=== PATIENT | female | born 1980 | race Caucasian/White ===

== ENCOUNTER → 2021-05-05 | Outpatient (CLI) | payer BC ==
[2005-08-11 08:00] VITALS: TEMP 97.1
[~2021-05-05] MED LIST: LORTAB 5/500 501 TAB PO; MOTRIN 600600 MG/TAB PO; NOVA RING; PERCOCET 325 MG1 TA2 PO; PHENERGAN 25 TA25 MG PO; PRENATAL1 TA7 PO; PRILOSEC10 MG PO; STOOL SOFTENER100 M2 PO; SYNTHROID PO; VALTREX 50500 MG/TAB PO; ZANTAC 150MG T150 MG PO
== END ==
LOC: MC.RAD 16:46
DX: Z12.31 Encounter for screening mammogram for malignant neoplasm of breast (principal); N64.89 Other specified disorders of breast

== ENCOUNTER → 2021-05-24 | Outpatient (CLI) | payer BC ==
[2005-08-11 08:00] VITALS: TEMP 97.1
== END ==
LOC: MC.RAD 13:00
DX: N64.89 Other specified disorders of breast (principal)

== ENCOUNTER → 2022-01-30 | Outpatient (CLI) | payer BC ==
[2005-08-11 08:00] VITALS: TEMP 97.1
== END ==
LOC: MC.RAD 06:52
DX: N64.89 Other specified disorders of breast (principal)